=== PATIENT | female | born 1970 | race Two or more races ===

== ENCOUNTER → 2024-06-12 | Outpatient (CLI) | payer BC, SELFPAY ==
[2024-06-12 11:21] LABS: Basophils # (Auto) 0.1 Thou/mm3 (0.0-0.2); Basophils % (Auto) 1 % (0-2.5); Eosinophils # (Auto) 0.1 Thou/mm3 (0.0-0.5); Eosinophils % (Auto) 1 % (0-10); Hematocrit 41.3 % (36.0-46.0); Hemoglobin 13.6 g/dL (12.0-16.0); Immature Granulocytes % (Auto) 0 % (0-0); Immature Granulocytes Auto 0.03 Thou/mm3 (0.00-0.00); Lymphocytes # (Auto) 2.5 Thou/mm3 (1.0-4.8); Lymphocytes % (Auto) 35 % (10-50); Mean Corpuscular HGB Conc 32.9 g/dl (31.0-37.0); Mean Corpuscular Hemoglobin 30.7 pg (25.0-35.0); Mean Corpuscular Volume 93 fL (80-100); Monocytes # (Auto) 0.5 Thou/mm3 (0.0-0.8); Monocytes % (Auto) 7 % (0-12); Neutrophils % (Auto) 56 % (37-80); Nucleated Red Blood Cell % 0 /100 WBC (0); Platelet Count 342 Thou/mm3 (140-440); RDW Standard Deviation 42.6 fL (36.4-46.3); Red Blood Count 4.43 Miln/mm3 (4.00-5.20); White Blood Count 7.1 Thou/mm3 (3.6-11.0)
[2024-06-12 11:48] LABS: Alanine Aminotransferase 11 U/L (10-49); Albumin, Serum 4.3 gm/dL (3.5-5.0); Albumin/Globulin Ratio 1.8 (1.2-2.2); Alkaline Phosphatase 78 U/L (46-116); Anion Gap 9 (7-16); Aspartate Amino Transferase 13 U/L (0-34); BUN/Creatinine Ratio 19 Ratio (12-20); Bilirubin,Total 0.3 mg/dL (0.3-1.2); Blood Urea Nitrogen 13 mg/dL (9-23); Calcium 9.9 mg/dL (8.3-10.6); Calcium (Corrected) 9.9 mg/dL (8.5-10.1); Carbon Dioxide 26.7 mMol/L (20.0-31.0); Cardiac Risk Estimate 3.6 RATIO (3.7-5.6); Chloride 105 mMol/L (98-107); Cholesterol 204 mg/dL (132-200); Creatinine (Component) 0.7 mg/dL (0.6-1.3); Globulin 2.4 gm/dL (2.3-3.5); Glucose 100 mg/dL (74-106); HDL Cholesterol 56 mg/dL (40-60); LDL Cholesterol,Calculated 125 mg/dL (0-130); Osmolality,Calculated 281 (275-295); Potassium 4.6 mMol/L (3.4-5.1); Sodium 141 mMol/L (136-145); Total Protein 6.7 gm/dL (5.7-8.2); Triglycerides 114 mg/dL (30-150); eGFR > 60 See Note
[2024-06-12 11:52] LABS: Glucose Estimated Average 108 mg/dL (80-131); Hemoglobin A1C 5.4 % Hgb (4.8-6.0)
== END | disposition home or self-care (01) ==
PROVIDERS: PCP Internal Medicine; Referring Provider Internal Medicine; Visit Provider Internal Medicine
DX: I10 Essential (primary) hypertension (principal); K76.0 Fatty (change of) liver, not elsewhere classified
CPT/HCPCS: 36415; 80053; 80061; 83036; 85025

== ENCOUNTER 2024-07-10 10:34 | Outpatient (AMB) | payer BC, SELFPAY ==
[2024-07-10 10:52] VITALS: BP 123/75; PULSE 67; RESP 18; TEMP 36.8; O2SAT 96; BMI 34.9
--- NOTE | 2024-07-10 10:52 | GSCOFFNT_ITS ---
[facility]ital Sign[facility] - [facility] 07/10/24 10:52 Height 1.63 m Height Method Stated Weight 92.164 kg Weight Measurement Method Standing Scale BMI 34.9 BP 123/75 Blood Pressure Source Automatic Cuff Blood Pressure Location Left Upper Arm Position Sitting Respiration 18 Pulse 67 Pulse Source Monitor Temp 98.3 F Temp Source Temporal Artery Scan Pulse Oximetry (%) 96 Oxygen Delivery Method Room Air Med/Allergies Allergies & Medications Allergies No Known Allergies Allergy (Verified 07/10/24 10:53) Medication Reconciliation lisinopril 40 mg tablet 40 mg PO QDAY 07/20/22 [History Confirmed 07/10/24] ergocalciferol (vitamin D2) 1,250 mcg (50,000 unit) capsule 50,000 unit PO QWEEK 12/08/22 [History Confirmed 07/10/24] famotidine 40 mg tablet 40 mg PO QDAY 12/08/22 [History Confirmed 07/10/24] omeprazole 20 mg capsule,delayed release 20 mg PO QDAY 12/08/22 [History Confirmed 07/10/24] hydrocortisone 2.5 % topical cream with perineal applicator (Anusol-HC) 1 applic PA QD-BID PRN hemorrhoids #30 grams 07/10/24 [Rx] MA Intake Visit Data Collection New Patient or Established: New Patient (never been to [facility]) Seen by Clinical Staff ONLY (RN/MA): No Reason for Visit:: REQUEST REPEAT COLONOSCOPY Pain Present Currently: Yes Pain Location: Unable to identify Formulator Required: Yes PCP or OBGYN visit in last 3 months: Yes Hx Now: No Do You Feel Safe at Home: Yes Authorities Contacted: N/A Smoking Status Smoking Status: Never smoker Immunization / Flu Flu Vaccine in the Last 12 Months: Yes Flu Vaccine Exclusion Criteria: Already Received Past Medical History Past Medical History NEUROLOGIC: Negative Neurological Disorders or Seizures CARDIAC: Positive Cardiac Disorders and Hypertension; Negative Congestive Heart Failure RESPIRATORY: Negative Chronic Obstructive Pulmonary Disease (COPD) GASTROINTESTINAL: Positive Gastrointestinal Disorders (GASTRITIS. SMALL RECTAL BLEED, CONSTIPATION), Gall Bladder Disease and Obesity GENITOURINARY: Positive Genitourinary Disorders (KIDNEY CYST); Negative Renal Disease REPRODUCTIVE: Positive Previous Pregnancies (1) MUSCULOSKELETAL: Negative Musculoskeletal Disorders ENDOCRINE: Negative Endocrine Disorders, Diabetes Mellitus Type 1 or Diabetes Mellitus Type 2 HEMATOLOGIC: Negative Blood Disorders PSYCHO/SOCIAL: Positive Depression and Anxiety OTHER HISTORY: Positive Anesthesia Reactions (STATES HAD UNSTABLE HEART RATE), Chicken Pox and Measles; Negative Falls, Blood Transfusions, Blood Transfusion Reaction, MRSA or Cancer Surgical History SURGICAL: Positive Hysterectomy Social History SMOKING STATUS: Smoking status: Never smoker SECOND HAND EXPOSURE: second hand exposure: No SUBSTANCE USE: Substance use type: does not use ALCOHOL: Alcohol Intake: Never HOUSING: Housing: House LIVES WITH: Lives With: Children, Family and Spouse Travel Risk Travel Hx Recent Travel: No HPI HPI Narrative 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 I performed screening colonoscopy 11/2022 and pt was found to have a rectal TVA which was 1cm per pathology report, and her prep was not adequate to visualize polyps <5mm. Pt reports that she sometimes strains to have a BM, drinks about 4-5 bottles of water per day but does not take fiber. She has occasional perianal itching and swelling, was once given a cream which she felt did not help much but is not currently using any remedies including sitz baths, and does sometimes have minimal blood with wiping She denies any changes in stool caliber, anorexia and unintentional weight loss ROS Review of Systems Systems Reviewed: All systems reviewed, normal except as documented Objective/Exam General General Appearance: alert, cooperative and well groomed Resp Respiratory exam: Absent respiratory distress Assessment & Plan Diagnosis / Problem List (1) Encounter for colonoscopy due to history of adenomatous colonic polyps: Status: Acute Assessment & Plan: 53F s/p screening colonoscopy in 2022 with findings of rectal TVA. Given inadequate prep in addition to this finding I do recommend surveillance colonoscopy as soon as possible. I explained benefits/risks including bleeding, perforation requiring emergency surgery and the possibility of needing to abort prematurely for safety. All questions were answered and pt is agreeable to proceeding (2) Hemorrhoids: Status: Acute Assessment & Plan: As pt has minimal symptoms and has not tried all remedies I recommended initiating fiber intake and will prescribe hydrocortisone. I also recommended s cassandra baths up to TID. I explained that if symptoms persist despite maximal medical therapy we can discuss the possibility of surgery Office Procedures GNS Level of Care Nursing/Assessment Patient Status: Established Patient Nursing Assessment/Reassesment: Medication Reconciliation, Update PMH in EMR and Vital Signs Coordination of Care: Complex Care and Chronic Disease 1-5, Education Complex Pt/Fam, Consent,records obtained, informed consent, Results/Orders obtained and Staff clarify orders Special Needs: Language special needs Established Patient Charge Established Patient Point Assignment: 95 Established Patient Point Charge: EP Level 3 (80-115) Patient Portal Questionaires Social History Living Situation History Housing: House Housing Other:: pt lives with and dtr Tobacco History Smoking Status: Never smoker Second Hand Smoke Exposure: No Alcohol History Alcohol Intake: Never Domestic Abuse History Do You Feel Safe at Home: Yes Review of Systems Report any current symptoms Only answer those that you have currently: Past Medical History Past Medical History Have you ever been diagnosed with any of the following: Neurological Problems Seizures: No Cardiology Problems Congestive Heart Failure: No Hypertension: Yes Respiratory Problems Chronic Obstructive Pulmonary Disease (COPD): No Stomache/Intestinal Problems Gall Bladder Disease: Yes Obesity: Yes Genital/Urinary Problems Renal Disease: No Reproductive Problems Previous Pregnancies: Yes (1) Endocrine Problems Diabetes Mellitus Type 1: No Diabetes Mellitus Type 2: No Psychologic Problems Depression: Yes Anxiety: Yes Other Problems Falls: No Blood Transfusions: No Blood Transfusion Reaction: No Anesthesia Reactions: Yes (STATES HAD UNSTABLE HEART RATE) MRSA: No Chicken Pox: Yes Measles: Yes Cancer: No Surgical History Hysterectomy: Yes
== END 2024-07-10 11:10 | disposition home or self-care (01) ==
LOC: HODSRG 10:34
PROVIDERS: PCP Internal Medicine; Referring Provider Internal Medicine; Supervising Provider Surgery; Visit Provider Surgery
DX: Z12.11 Encounter for screening for malignant neoplasm of colon (principal); Z86.0101 Personal history of adenomatous and serrated colon polyps; K64.9 Unspecified hemorrhoids
CPT/HCPCS: 99213; G0463

== ENCOUNTER → 2024-07-26 | Outpatient (CLI) | payer BC, SELFPAY ==
--- NOTE | 2024-07-26 14:15 | XR_ITS ---
Examination: Screening digital mammography, bilateral Computer aided detection 3-D breast Tomosynthesis, bilateral Date and time of exam: July 26, 2024 1414 hours Compared to mammograms dating to September 16, 2015 Indication: Screening Technique: Nonmagnified MLO, CC views of the breasts to been obtained, reconstructed from 3-D Tomosynthesis images. R2 computer aided detection program utilized for evaluation of suspicious masses and/or abnormal calcifications. 3-D Tomosynthesis images obtained. Findings: Scattered areas of fibroglandular density. Benign calcifications. No interval suspicious masses Impression: BI-RADS category II: Benign Findings. Recommend 1 year follow-up mammogram.
== END | disposition home or self-care (01) ==
PROVIDERS: PCP Student in an Organized Health Care Education/Training Program; Referring Provider Student in an Organized Health Care Education/Training Program; Visit Provider Student in an Organized Health Care Education/Training Program
DX: Z12.31 Encounter for screening mammogram for malignant neoplasm of breast (principal); R92.323 Mammographic fibroglandular density, bilateral breasts; R92.1 Mammographic calcification found on diagnostic imaging of breast
CPT/HCPCS: 77063; 77067

== ENCOUNTER 2024-09-05 08:05 | Day surgery (SDC) | payer BC, SELFPAY ==
[2024-09-05] VITALS (11 sets, daily range): BP systolic 113–172; BP diastolic 59–97; PULSE 52–67; RESP 10–21; TEMP 36.2–36.8; O2SAT 97–100; BMI 33.9
[2024-09-05] MEDS: RINGERS LACTATED 1000 ML 1,000 ML 125 ML IV (10:06)
[2024-09-05] MEDS: MIDAZOLAM INJ 1 MG/ML VIAL 2 ML (ASD USE ONLY) 2 MG IVP (10:06)
[2024-09-05] MEDS: fentaNYL CIT INJ 50 mCg/ML AMP 2ML (ASD USE ONLY) IVP (10:07)
[2024-09-05] MEDS: DiphenhydrAMINE INJ 50 MG/ML VIAL 25 MG IVP (10:07)
--- NOTE | 2024-09-05 10:40 | SUR.PHASEII ---
Pt is more awake and drinking juice in the gurney, pt report mild diziness. Will continue to monitor.
--- NOTE | 2024-09-05 10:58 | SUR.PHASEII ---
Pt reports no longer feel dizzy and ready to get up.
== END 2024-09-05 11:16 | disposition home or self-care (01) ==
PROVIDERS: PCP Student in an Organized Health Care Education/Training Program; Referring Provider Surgery; Visit Provider Surgery
PROC: 0DBE8ZX Excision of Large Intestine, Via Natural or Artificial Opening Endoscopic, Diagnostic (ICD-10-PCS; CPT 45380; principal; 2024-09-05 10:45)
DX: Z12.11 Encounter for screening for malignant neoplasm of colon (principal); Z86.0101 Personal history of adenomatous and serrated colon polyps; D12.5 Benign neoplasm of sigmoid colon; K64.8 Other hemorrhoids; K62.1 Rectal polyp; K63.5 Polyp of colon
CPT/HCPCS: 45385; 45380; 81025; J1200; J2250; J3010; J7120

== ENCOUNTER 2024-09-11 10:09 | Outpatient (AMB) | payer BC, SELFPAY ==
--- NOTE | 2024-09-11 10:13 | GSCOFFNT_ITS ---
Vital Signs - [facility] 09/11/24 10:18 Height 1.65 m Height Method Stated Weight 93.128 kg Weight Measurement Method Standing Scale BMI 34.2 BP 149/80 H Blood Pressure Source Automatic Cuff Blood Pressure Location Left Upper Arm Position Sitting Respiration 19 Pulse 77 Pulse Source Monitor Temp 98.0 F Temp Source Temporal Artery Scan Pulse Oximetry (%) 97 Oxygen Delivery Method Room Air Med/Allergies Allergies & Medications Allergies No Known Allergies Allergy (Verified 09/11/24 10:18) Medication Reconciliation lisinopril 40 mg tablet 40 mg PO QDAY 07/20/22 [History Confirmed 09/11/24] ergocalciferol (vitamin D2) 1,250 mcg (50,000 unit) capsule 50,000 unit PO QWEEK 12/08/22 [History Confirmed 09/11/24] famotidine 40 mg tablet 40 mg PO QDAY 12/08/22 [History Confirmed 09/11/24] omeprazole 20 mg capsule,delayed release 20 mg PO QDAY 12/08/22 [History Confirmed 09/11/24] hydrocortisone 2.5 % topical cream with perineal applicator (Anusol-HC) 1 applic [place] QD-BID PRN hemorrhoids #30 grams 07/10/24 [Rx Confirmed 09/11/24] peg 3350-electrolytes 236 gram-22.74 gram-6.74 gram-5.86 gram solution (Golytely) 240 ml PO Q10M #4,000 mL 08/24/24 [Rx Confirmed 09/11/24] hydrocortisone acetate 25 mg rectal suppository (Anusol-HC) 25 mg TX QHS #24 ea 09/11/24 [Rx] MA Intake Visit Data Collection New Patient or Established: Established Patient (seen at [facility] within 3 years) Seen by Clinical Staff ONLY (RN/MA): No Reason for Visit:: COLONOSCOPY RESULTS Pain Present Currently: No Welfare 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 PCP or OBGYN visit in last 3 months: Yes Smoking Status Smoking Status: Never smoker Immunization / Flu Flu Vaccine in the Last 12 Months: No Flu Vaccine Exclusion Criteria: No Exclusion Criteria Past Medical History Past Medical History NEUROLOGIC: Negative Neurological Disorders or Seizures CARDIAC: Positive Cardiac Disorders and Hypertension; Negative Congestive Heart Failure RESPIRATORY: Negative Chronic Obstructive Pulmonary Disease (COPD) GASTROINTESTINAL: Positive Gastrointestinal Disorders, Gall Bladder Disease, Hemorrhoids and Obesity GENITOURINARY: Positive Genitourinary Disorders; Negative Renal Disease REPRODUCTIVE: Positive Previous Pregnancies (1) ENDOCRINE: Negative Endocrine Disorders, Diabetes Mellitus Type 1 or Diabetes Mellitus Type 2 HEMATOLOGIC: Negative Blood Disorders PSYCHO/SOCIAL: Positive Depression and Anxiety OTHER HISTORY: Positive Anesthesia Reactions (STATES HAD UNSTABLE HEART RATE), Chicken Pox and Measles; Negative Falls, Blood Transfusions, MRSA or Cancer Surgical History SURGICAL: Positive Hysterectomy Social History SMOKING STATUS: Smoking status: Never smoker SECOND HAND EXPOSURE: second hand exposure: No ALCOHOL: Alcohol Intake: Never HOUSING: Housing: House LIVES WITH: Lives With: Children, Family and Spouse HPI HPI Narrative 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 Pt had a TVA on scope 11/2022, this time she had three diminutive polyps, one of which was a tubular adenoma <5mm (the other two were colonic tissue/hyperplastic) Pt feels well overall, but does state she has intermittent symptoms related to hemorrhoids and would like to try suppositories ROS Review of Systems Systems Reviewed: All systems reviewed, normal except as documented Objective/Exam General General Appearance: alert, cooperative and well groomed Resp Respiratory exam: Absent respiratory distress Results Colonoscopy report, pathology report reviewed Assessment & Plan Diagnosis / Problem List (1) Encounter to discuss colonoscopy results: Status: Acute Assessment & Plan: 54F s/p surveillance colonoscopy 08/2024 with findings of one small tubular adenoma, next due for surveillance in 7 years Plan: Follow up as needed (2) Hemorrhoids: Status: Acute Assessment & Plan: I emphasized the importance of healthy bowel habits for minimizing hemorrhoids symptoms and will prescribe anusol suppositories. Pt is encouraged to reach out if symptoms worsen Office Procedures GNS Level of Care Nursing/Assessment Patient Status: Established Patient Nursing Assessment/Reassesment: Medication Reconciliation, Update PMH in EMR and Vital Signs Coordination of Care: Complex Care and Chronic Disease 1-5, Consent,records obtained, informed consent, Education Simp Pt/Fam, Results/Orders obtained and Staff clarify orders Special Needs: Language special needs Established Patient Charge Established Patient Point Assignment: 90 Established Patient Point Charge: Level 3 (80-115) Patient Portal Questionaires Social History Living Situation History Housing: House Housing Other:: pt lives with and dtr Tobacco History Smoking Status: Never smoker Second Hand Smoke Exposure: No Alcohol History Alcohol Intake: Never Review of Systems Report any current symptoms Only answer those that you have currently: Past Medical History Past Medical History Have you ever been diagnosed with any of the following: Neurological Problems Seizures: No Cardiology Problems Congestive Heart Failure: No Hypertension: Yes Respiratory Problems Chronic Obstructive Pulmonary Disease (COPD): No Stomache/Intestinal Problems Gall Bladder Disease: Yes Hemorrhoids: Yes Obesity: Yes Genital/Urinary Problems Renal Disease: No Reproductive Problems Previous Pregnancies: Yes (1) Endocrine Problems Diabetes Mellitus Type 1: No Diabetes Mellitus Type 2: No Psychologic Problems Depression: Yes Anxiety: Yes Other Problems Falls: No Blood Transfusions: No Anesthesia Reactions: Yes (STATES HAD UNSTABLE HEART RATE) MRSA: No Chicken Pox: Yes Measles: Yes Cancer: No Surgical History Hysterectomy: Yes
[2024-09-11 10:18] VITALS: BP 149/80; PULSE 77; RESP 19; TEMP 36.7; O2SAT 97; BMI 34.2
== END 2024-09-11 10:35 | disposition home or self-care (01) ==
LOC: HODSRG 10:09
PROVIDERS: PCP Student in an Organized Health Care Education/Training Program; Referring Provider Student in an Organized Health Care Education/Training Program; Supervising Provider Surgery; Visit Provider Surgery
DX: Z71.2 Person consulting for explanation of examination or test findings (principal); K64.9 Unspecified hemorrhoids
CPT/HCPCS: 99213; G0463